=== PATIENT | female | born 1955 | race Caucasian/White ===

== ENCOUNTER → 2021-08-22 | Outpatient (CLI) | payer OTHER ==
--- NOTE | 2021-08-22 19:57 | RAD ---
EXAMINATION: XR CHEST 2V, XR RIBS 2 VIEWS RT CLINICAL HISTORY: CHEST PAIN, SHORT OF AIR, RIGHT LAT. RIB PAIN-MID TO LOWER. EXAM DATE/TIME: 08/22/2021 6:06 PM COMPARISON: None FINDINGS: Lines, Tubes, and Devices: None. Cardiomediastinal Silhouette: Normal heart size. Lungs and Pleura: Mild patchy opacities in the right lower lung zone. No evidence of pleural effusion or pneumothorax. Bones and Soft Tissues: No acute osseous abnormality. IMPRESSION: Mild patchy airspace disease in the right lower lung zone. No evidence of acute right rib fracture. Electronically signed by: Estuardo Delaney DO (08/22/2021 7:54 PM) [facility]
== END ==
LOC: RAD 17:56
PROVIDERS: ATTEND Nurse Practitioner
DX: R91.8 Other nonspecific abnormal finding of lung field (principal); R07.81 Pleurodynia; R07.9 Chest pain, unspecified; R06.02 Shortness of breath
CPT/HCPCS: 71046; 71100